=== PATIENT | female | born 1985 | race Caucasian/White ===

== ENCOUNTER 2024-01-04 11:27 | Emergency (ER) | payer BC ==
[2024-01-04 11:39] VITALS: BMI 47.5
[2024-01-04] MEDS ORDERED: KETOROLAC TROMETHAMINE 30 MG/1 ML VIAL ONE (12:12)
[2024-01-04] MEDS ORDERED: ACETAMINOPHEN 500 MG TABLET (FP) ONE (12:12)
[2024-01-04] MEDS ORDERED: AMOX TR/POT CLAV 875MG/125MG TABLETS (FP) ONE (12:18)
[2024-01-04] MEDS: ACETAMINOPHEN 500 MG TABLET (FP) PO ONE (12:21)
[2024-01-04] MEDS: KETOROLAC TROMETHAMINE 30 MG/1 ML VIAL IM ONE (12:28)
[2024-01-04] MEDS: AMOX TR/POT CLAV 875MG/125MG TABLETS (FP) PO ONE (12:29)
[2024-01-04 13:14] VITALS: BP 153/91; PULSE 100; RESP 21; TEMP 99.1
== END 2024-01-04 13:31 | disposition home or self-care (01) ==
LOC: JER 11:27
PROC: 2W3FX1Z Immobilization of Left Hand using Splint (ICD-10-PCS; principal; 2024-01-04)
DX: J32.9 Chronic sinusitis, unspecified (principal); R59.0 Localized enlarged lymph nodes; R09.81 Nasal congestion; M54.2 Cervicalgia
CPT/HCPCS: 99284-25

== ENCOUNTER 2025-01-12 20:27 | Inpatient (IN) | payer BC, OTHER ==
[2025-01-12] MEDS ORDERED: ACETAMINOPHEN INJECTION 100 ML ONE (21:25)
[2025-01-12] MEDS: LACTATED RINGERS SOLUTION 1000 ML INFUS.BAG IV ONE (21:48)
[2025-01-12] MEDS: ACETAMINOPHEN 1000 MG/100 ML BAG IVPB ONE (21:48)
[2025-01-12 21:51] LABS: HEMOGLOBIN 11.6 g/dL (11.2-15.7); MCHC 33.1 g/dl (32.2-35.5); MEAN CELL VOLUME 79.2 fl (79.4-94.8); MEAN PLT VOLUME 9.1 fl (9.4-12.3); PLATELET COUNT 303 x10^3/uL (182-369); RDW 14.1 % (12.1-16.8)
[2025-01-12 21:52] LABS: URINE APPEARANCE CLEAR; URINE BILIRUBIN NEGATIVE (NEGATIVE); URINE COLOR YELLOW; URINE GLUCOSE (UA) NEGATIVE (NEGATIVE); URINE KETONE NEGATIVE (NEGATIVE); URINE LEUK ESTERASE NEGATIVE (NEGATIVE); URINE NITRITE NEGATIVE (NEGATIVE); URINE PROTEIN 2+ (NEGATIVE); URINE UROBILINOGEN 0.2 mg/dL (0.2-1.0)
[2025-01-12 21:56] LABS: URINE RBC 20 /uL (0-23.9)
[2025-01-12 21:57] LABS: EPI CELLS 10 /uL (0-25.1); HYALINE CASTS 0 /uL (0-3.1); URINE BACTERIA 31 /uL (0-1359); URINE WBC 10 /uL (0-25.8)
[2025-01-12] MEDS ORDERED: guaiFENesin 200 MG/10 ML 10 ML UNIT-DOSE CUPS ONE (22:02)
[2025-01-12] MEDS: guaiFENesin 200 MG/10 ML 10 ML UNIT-DOSE CUPS PO ONE (22:04)
[2025-01-12 22:05] LABS: INR 1.24 (0.83-1.09); PROTHROMBIN TIME (PATIENT) 13.6 SEC (9.7-13.0)
[2025-01-12 22:08] LABS: ACTIVATED PTT 26.9 SECONDS (25.2-36.5)
[2025-01-12 22:21] LABS: MONOCYTE # 0.46 x10^3/uL (0.24-0.86)
[2025-01-12] MEDS ORDERED: DEXAMETHASONE SOD PHOSPHATE 10 MG/1 ML VIAL ONE (22:37)
[2025-01-12] MEDS: DEXAMETHASONE SOD PHOSPHATE 10 MG/1 ML VIAL IVPUSH ONE (22:40)
[2025-01-12 22:57] LABS: CHLORIDE 91 mmol/L (98-107); SODIUM 127 mmol/L (136-145)
[2025-01-12 22:59] LABS: CALCIUM 8.8 mg/dL (8.5-10.1)
[2025-01-12 23:00] LABS: ALBUMIN 2.9 g/dl (3.4-5.0); CO2 25 mmol/L (21-32); GLUCOSE,RANDOM 172 mg/dL (74-106)
[2025-01-12 23:03] LABS: CREATININE 0.7 mg/dL (0.55-1.3); SGOT/AST 46 U/L (15-37); SGPT/ALT 42 U/L (13-61)
[2025-01-12 23:04] LABS: BILIRUBIN,TOTAL 0.9 mg/dL (0.2-1); TOT PROT 7.3 g/dl (6.4-8.2)
[2025-01-12 23:05] LABS: ALK PHOS 138 U/L (45-117)
[2025-01-12] MEDS: REMDESIVIR 200 MG in SODIUM CHLORIDE 250 ML IVPB ONE (23:07)
[2025-01-12 23:10] LABS: ANION GAP 11 mmol/L (4-13); POTASSIUM 2.8 mmol/L (3.5-5.1)
[2025-01-12 23:29] LABS: MAGNESIUM 1.9 mg/dL (1.8-2.4)
[2025-01-12] MEDS ORDERED: POTASSIUM CHLORIDE ORAL LIQUID 20 MEQ/15 ML ONE (23:31)
[2025-01-12] MEDS: POTASSIUM CHLORIDE ORAL LIQUID 20 MEQ/15 ML PO ONE (23:34)
[2025-01-12] MEDS ORDERED: PIPERACILLIN/TAZOB 4.5 GM 4.5 GM/100 ML BAG IVPB ONE (23:56)
[2025-01-12] MEDS ORDERED: VANCOMYCIN 1 GM PREMIX (F) 1 GM/200 ML BAG ONE (23:57)
[2025-01-13] MEDS: PIPERACILLIN/TAZOB 4.5 GM 4.5 GM in DEXTROSE 5%-WATER 100 ML IVPB ONE (00:20)
[2025-01-13] MEDS: VANCOMYCIN 1,000 MG in DEXTROSE 5%-WATER - 250 ML IVPB ONE (00:40)
[2025-01-13] MEDS: REMDESIVIR 200 MG in SODIUM CHLORIDE 250 ML IVPB ONE ×2 (00:55)
[2025-01-13] MEDS: LACTATED RINGERS SOLUTION 1,000 ML/1,000 ML INFUS.BAG IV STA ×2 (01:50→03:39)
[2025-01-13] MEDS: ALBUTEROL SO4 HFA INHALER IH SCH (04:46)
[2025-01-13] MEDS: PIPERACILLIN/TAZOB 4.5 GM 4.5 GM in DEXTROSE 5%-WATER 100 ML IVPB SCH (04:56)
[2025-01-13] MEDS ORDERED: ALBUTEROL SO4 2.5/IPRATROPIUM 0.5 INH SOL 3 ML VIAL.NEB. NEB PRN (05:40)
[2025-01-13 07:36] LABS: ABSOLUTE IMMATURE GRANULOCYTES 0.05 x10^3/uL (0.0-0.031); BASOPHILS # 0.01 x10^3/uL (0.01-0.08); HEMATOCRIT 37.6 % (34.1-44.9); HEMOGLOBIN 12.2 g/dL (11.2-15.7); MCHC 32.4 g/dl (32.2-35.5); MEAN CELL VOLUME 80.5 fl (79.4-94.8); MEAN PLT VOLUME 9.3 fl (9.4-12.3); MONOCYTE # 0.46 x10^3/uL (0.24-0.86); MONOCYTE % 6.8 % (4.7-12.5); PLATELET COUNT 340 x10^3/uL (182-369); RDW 14.5 % (12.1-16.8)
[2025-01-13 08:00] LABS: POTASSIUM 4.2 mmol/L (3.5-5.1)
[2025-01-13] MEDS ORDERED: SODIUM CHLORIDE 1,000 ML with POTASSIUM CHLORIDE 40 MEQ IV SCH ×2 (08:00→09:21)
[2025-01-13 08:08] LABS: CALCIUM 9.5 mg/dL (8.5-10.1)
[2025-01-13 08:09] LABS: ALBUMIN 2.6 g/dl (3.4-5.0); BLOOD UREA NITROGEN 9.6 mg/dL (7-18); CREATININE 0.7 mg/dL (0.55-1.3); MAGNESIUM 2.4 mg/dL (1.8-2.4)
[2025-01-13 08:10] LABS: PHOSPHOROUS 2.3 mg/dL (2.5-4.9)
[2025-01-13 08:11] LABS: BILIRUBIN,TOTAL 0.7 mg/dL (0.2-1); TOT PROT 6.8 g/dl (6.4-8.2)
[2025-01-13] MEDS: DEXAMETHASONE 4 MG TABLET (FP) PO SCH (09:26)
[2025-01-13] MEDS: ENOXAPARIN NA (PORCINE) 40 MG/0.4 ML DISP.SYRIN SQ SCH (09:27)
[2025-01-13] MEDS: SODIUM CHLORIDE 1,000 ML with POTASSIUM CHLORIDE 40 MEQ IV SCH (10:41)
[2025-01-13] MEDS: ALBUTEROL SO4 2.5/IPRATROPIUM 0.5 INH SOL 3 ML VIAL.NEB. NEB SCH (12:00)
[2025-01-13] MEDS ORDERED: ALBUTEROL SO4 HFA INHALER IH PRN (12:29)
[2025-01-13] MEDS: guaiFENesin/CODEINE 10 ML UNIT-DOSE CUPS PO PRN (13:22)
[2025-01-13 16:07] LABS: N-TERMINAL BNP 181.8 pg/ml (5-125)
[2025-01-13] MEDS ORDERED: INSULIN (NOVOLOG) ASPART 100 UNITS/ML 10ML VIAL ONE (21:19)
[2025-01-13] MEDS: INSULIN ASPART SLIDING SCALE (NOVOLOG) 1 VIAL SQ SCH (21:21)
[2025-01-14] MEDS: PIPERACILLIN/TAZOB 4.5 GM 4.5 GM in DEXTROSE 5%-WATER 100 ML IVPB SCH (03:23)
[2025-01-14 09:09] LABS: ABSOLUTE IMMATURE GRANULOCYTES 0.07 x10^3/uL (0.0-0.031); BASOPHILS # 0.01 x10^3/uL (0.01-0.08); HEMATOCRIT 35.1 % (34.1-44.9); MCHC 31.3 g/dl (32.2-35.5); MEAN CELL VOLUME 82.8 fl (79.4-94.8); MEAN PLT VOLUME 9.2 fl (9.4-12.3); MONOCYTE # 0.46 x10^3/uL (0.24-0.86); MONOCYTE % 5.5 % (4.7-12.5); PLATELET COUNT 419 x10^3/uL (182-369)
[2025-01-14 09:22] LABS: POTASSIUM 4.8 mmol/L (3.5-5.1)
[2025-01-14 09:31] LABS: ALBUMIN 2.6 g/dl (3.4-5.0); BLOOD UREA NITROGEN 12.7 mg/dL (7-18)
[2025-01-14 09:32] LABS: BILIRUBIN,TOTAL 0.4 mg/dL (0.2-1); TOT PROT 6.7 g/dl (6.4-8.2)
[2025-01-14 09:33] LABS: CALCIUM 9.2 mg/dL (8.5-10.1)
[2025-01-14 09:34] LABS: CREATININE 0.6 mg/dL (0.55-1.3); MAGNESIUM 2.5 mg/dL (1.8-2.4)
[2025-01-14] MEDS ORDERED: REMDESIVIR 100 MG in SODIUM CHLORIDE 250 ML IVPB SCH (10:00)
[2025-01-14] MEDS: REMDESIVIR 100 MG in SODIUM CHLORIDE 250 ML IVPB SCH (11:59)
[2025-01-14 13:41] VITALS: BMI 48.5
[2025-01-15] MEDS: metFORMIN HCL 500 MG TABLET (FP) PO SCH (06:10)
[2025-01-15 08:29] LABS: ABSOLUTE IMMATURE GRANULOCYTES 0.15 x10^3/uL (0.0-0.031); BASOPHILS # 0.02 x10^3/uL (0.01-0.08); HEMATOCRIT 36.3 % (34.1-44.9); HEMOGLOBIN 11.5 g/dL (11.2-15.7); MCHC 31.7 g/dl (32.2-35.5); MEAN CELL VOLUME 82.7 fl (79.4-94.8); MONOCYTE # 0.69 x10^3/uL (0.24-0.86); MONOCYTE % 7.3 % (4.7-12.5); PLATELET COUNT 404 x10^3/uL (182-369); RDW 14.9 % (12.1-16.8)
[2025-01-15 08:46] LABS: POTASSIUM 4.5 mmol/L (3.5-5.1)
[2025-01-15 08:50] LABS: ALBUMIN 2.6 g/dl (3.4-5.0); BLOOD UREA NITROGEN 12.3 mg/dL (7-18); CALCIUM 9.1 mg/dL (8.5-10.1); MAGNESIUM 2.3 mg/dL (1.8-2.4)
[2025-01-15 08:54] LABS: CREATININE 0.6 mg/dL (0.55-1.3)
[2025-01-15 08:55] LABS: BILIRUBIN,TOTAL 0.6 mg/dL (0.2-1); TOT PROT 6.2 g/dl (6.4-8.2)
[2025-01-15] MEDS: INSULIN GLARGINE (LANTUS) 100 UNITS/ML UNITS SQ SCH (10:09)
[2025-01-15 14:07] VITALS: RESP 18
[2025-01-15 14:19] VITALS: BP 132/82; PULSE 77; TEMP 97.9
[2025-01-15] MEDS ORDERED: INSULIN GLARGINE (LANTUS) 100 UNITS/ML UNITS SQ SCH (22:00)
== END 2025-01-15 16:00 | disposition home or self-care (01) | DRG 177 ==
LOC: JERFT 20:27 → JERBED 01-13 00:14 → J7W 01-13 02:08
PROVIDERS: ADMIT Internal Medicine
PROC: XW033E5 Introduction of Remdesivir Anti-infective into Peripheral Vein, Percutaneous Approach, New Technology Group 5 (ICD-10-PCS; principal; 2025-01-13)
DX: U07.1 COVID-19 (principal); J12.82 Pneumonia due to coronavirus disease 2019; Z68.42 Body mass index [BMI] 45.0-49.9, adult; E87.1 Hypo-osmolality and hyponatremia; R04.2 Hemoptysis; E66.01 Morbid (severe) obesity due to excess calories; E11.65 Type 2 diabetes mellitus with hyperglycemia; I10 Essential (primary) hypertension; J45.909 Unspecified asthma, uncomplicated; E87.6 Hypokalemia; R09.02 Hypoxemia
CPT/HCPCS: 0241U-QW; 36415; 71045-TC-FY; 71046-TC-FY; 71275-TC; 80053; 80061; 81003; 82728; 82962; 83036; 83605; 83735; 83880; 83935; 84100; 84300; 84443; 84484; 84703; 85025; 85379; 85384; 85610; 85730; 86140; 87040; 87070; 87086; 87205; 87899; 93005; 93010; 93306-TC; 94640; 99285-25; J0131; J0248; J1100